=== PATIENT | male | born 2005 | race African-American/Black ===

== ENCOUNTER 2024-02-29 13:50 | Emergency (ER) | payer OTHER ==
[~2024-02-29] VITALS: Ht 180.3 cm; Wt 63.6 kg
[2024-02-29 19:03] VITALS: BP 122/85; TEMP 97.2; O2SAT 100
[2024-02-29] MEDS ORDERED: IBUP-1022 PO (19:12)
== END 2024-02-29 19:21 | disposition home or self-care (01) ==
LOC: EDBD 13:50 → M ED 13:50
DX: K40.20 Bilateral inguinal hernia, without obstruction or gangrene, not specified as recurrent (principal); Z79.1 Long term (current) use of non-steroidal anti-inflammatories (NSAID)